=== PATIENT | female | born 1990 | race Caucasian/White ===

== ENCOUNTER 2021-10-16 17:36 | Emergency (ER) | payer OTHER ==
[~2021-10-16] VITALS: Ht 167.6 cm; Wt 77.0 kg
[2021-10-16] MEDS ORDERED: MULTTAB20 PO (17:45)
[2021-10-16 20:41] LABS: BASO % 0.4 % (0.0-1.0); EOS # 0.1 10^3/uL (0.0-0.5); EOS % 1.3 % (0.0-3.0); HEMATOCRIT 39.6 % (36.0-47.0); HEMOGLOBIN 13.7 g/dl (12.0-15.5); LYMPH # 3.1 10^3/uL (1.5-5.0); LYMPH % 30.4 % (24.0-44.0); MEAN CORPUSCULAR HEMOGLOBIN 31.1 pg (27.0-33.0); MEAN CORPUSCULAR HGB CONC 34.6 g/dl (32.0-36.5); MEAN CORPUSCULAR VOLUME 89.8 fl (80.0-96.0); MONO % 9.7 % (2.0-8.0); NEUTROPHILS % 57.8 % (36.0-66.0); PLATELET COUNT, AUTOMATED 225 10^3/uL (150-450); RED BLOOD COUNT 4.41 10^6/uL (4.00-5.40); WHITE BLOOD COUNT 10.3 10^3/uL (4.0-10.0)
[2021-10-16 22:14] VITALS: BP 139/78
== END 2021-10-16 22:18 | disposition home or self-care (01) ==
LOC: M ED 17:36
DX: O20.0 Threatened abortion (principal); O20.8 Other hemorrhage in early pregnancy; Z3A.01 Less than 8 weeks gestation of pregnancy; Z79.899 Other long term (current) drug therapy

== ENCOUNTER 2022-06-10 23:42 | Inpatient (IN) | payer OTHER ==
[~2022-06-10] VITALS: Ht 167.6 cm; Wt 99.5 kg
[~2022-06-10 23:42] MED LIST: MULTTAB20 PO
[2022-06-11] VITALS (48 sets, daily range): BP systolic 104–179; BP diastolic 56–101
[2022-06-11] MEDS ORDERED: CALC500C15 PO (01:50)
[2022-06-11] MEDS ORDERED: HOME MED LIST COMPLETE! XX SCH (01:55)
[2022-06-11] MEDS ORDERED: LACTATED RINGER'S 1000 ML IV STA (02:47)
[2022-06-11] MEDS ORDERED: METHYLERGONOVINE MALEATE 0.2 MG/ML VIAL IM PRN (02:50)
[2022-06-11] MEDS ORDERED: CARBOPROST TROMETHAMINE 250 MCG/ML AMP IM PRN (02:50)
[2022-06-11] MEDS ORDERED: OXYTOCIN DRIP 30 UNITS in IV 1 EA IV PRN ×4 (02:50)
[2022-06-11] MEDS ORDERED: TRANEXAMIC ACID INJection 1,000 MG in NS 100 ML IV PRN (02:50)
[2022-06-11 03:28] LABS: APPEARANCE, URINE MANUAL CLEAR (CLEAR); COLOR, URINE MANUAL YELLOW (YELLOW)
[2022-06-11 03:30] LABS: PROTEIN, URINE MANUAL NEGATIVE (NEGATIVE)
[2022-06-11 03:31] LABS: BILIRUBIN, URINE MANUAL NEGATIVE (NEGATIVE); BLOOD URINE MANUAL POSITIVE (NEGATIVE); GLUCOSE, URINE (UA) MANUAL NEGATIVE (NEGATIVE); KETONE, URINE MANUAL NEGATIVE (NEGATIVE); LEUKOCYTE ESTERASE, URINE MAN TRACE (NEGATIVE); NITRITE, URINE MANUAL NEGATIVE (NEGATIVE); UROBILINOGEN, URINE MANUAL NORMAL (NORMAL)
[2022-06-11 03:34] LABS: BASO # 0.1 10^3/uL (0.0-0.2); BASO % 0.4 % (0.0-1.0); EOS # 0.1 10^3/uL (0.0-0.5); EOS % 0.5 % (0.0-3.0); HEMATOCRIT 41.2 % (36.0-47.0); HEMOGLOBIN 13.8 g/dl (12.0-15.5); LYMPH # 1.6 10^3/uL (1.5-5.0); LYMPH % 10.9 % (24.0-44.0); MEAN CORPUSCULAR HEMOGLOBIN 31.1 pg (27.0-33.0); MEAN CORPUSCULAR HGB CONC 33.5 g/dl (32.0-36.5); MEAN CORPUSCULAR VOLUME 92.8 fl (80.0-96.0); MONO # 1.1 10^3/uL (0.0-0.8); MONO % 7.1 % (2.0-8.0); NEUTROPHILS % 79.7 % (36.0-66.0); PLATELET COUNT, AUTOMATED 227 10^3/uL (150-450); RED BLOOD COUNT 4.44 10^6/uL (4.00-5.40)
[2022-06-11 03:37] LABS: BACTERIA, URINE SMALL AMOUNT; SQUAMOUS EPITHELIAL CELL URINE SMALL AMOUNT /hpf (SMALL AMT)
[2022-06-11 03:38] LABS: HYALINE CAST, URINE NONE SEEN /lpf (0-1)
[2022-06-11] MEDS ORDERED: LR 500 ML IV PRN (04:45)
[2022-06-11] MEDS ORDERED: NALOXONE INJ 0.4MG/1ML VIAL IV PRN (04:45)
[2022-06-11] MEDS ORDERED: diphenhydrAMINE 50MG/ML VIAL IV PRN (04:45)
[2022-06-11] MEDS ORDERED: EPIDURAL/PCA KEYS XX PRN (04:45)
[2022-06-11] MEDS ORDERED: ONDANSETRON 4MG 2ML VIAL IV PRN (04:45)
[2022-06-11] MEDS: LR 1,000 ML IV SCH ×2 (04:57→10:38)
[2022-06-11] MEDS: FENTANYL/ROPIVACAINE/NACL BAG 100 ML EPIDURAL SCH ×2 (05:16→14:45)
[2022-06-11] MEDS: ePHEDrine SULFATE 25 MG/5 ML(5MG/ML) SYRINGE IVP PRN ×3 (08:44→09:38)
[2022-06-11] MEDS: DOCUSATE SODIUM 100MG CAPSULE PO SCH ×2 (09:00→21:45)
[2022-06-11] MEDS ORDERED: MOM 30ML SUSPENSION UDC PO PRN (13:10)
[2022-06-11] MEDS ORDERED: METHYLERGONOVINE MALEATE 0.2 MG TAB PO PRN (13:10)
[2022-06-11] MEDS ORDERED: DIBUCAINE 1% OINTMENT 30GM TOP PRN (13:10)
[2022-06-11] MEDS ORDERED: RHOGAM 300MCG (1500IU) INJ IM SCH (13:10)
[2022-06-11] MEDS ORDERED: OXYTOCIN DRIP 30 UNITS in IV 1 EA IV SCH (13:10)
[2022-06-11] MEDS: IBUPROFEN 800 MG TAB PO SCH ×2 (13:35→21:46)
[2022-06-11] MEDS: ACETAMINOPHEN TAB 650MG DOSE (2X325MG) PO SCH ×3 (14:45→22:45)
[2022-06-11] MEDS ORDERED: CYCLOBENZAPRINE 5MG TABLET PO PRN (16:55)
[2022-06-12] MEDS: ACETAMINOPHEN TAB 650MG DOSE (2X325MG) PO SCH ×3 (02:02→09:46)
[2022-06-12] MEDS: IBUPROFEN 800 MG TAB PO SCH ×3 (05:53→21:09)
[2022-06-12 06:00] VITALS: BP 121/65
[2022-06-12 07:28] LABS: HEMATOCRIT 30.7 % (36.0-47.0); MEAN CORPUSCULAR HEMOGLOBIN 30.8 pg (27.0-33.0); MEAN CORPUSCULAR HGB CONC 32.9 g/dl (32.0-36.5); MEAN CORPUSCULAR VOLUME 93.6 fl (80.0-96.0); PLATELET COUNT, AUTOMATED 174 10^3/uL (150-450); RED BLOOD COUNT 3.28 10^6/uL (4.00-5.40); WHITE BLOOD COUNT 19.2 10^3/uL (4.0-10.0)
[2022-06-12 07:41] LABS: HEMOGLOBIN 10.1 g/dl (12.0-15.5)
[2022-06-12] MEDS: PRENATAL VITAMINS CHEWABLE TABLET PO SCH ×2 (08:41→08:42)
[2022-06-12] MEDS: DOCUSATE SODIUM 100MG CAPSULE PO SCH ×2 (08:42→21:08)
[2022-06-12] MEDS ORDERED: FIORICET TAB PO ONE (09:35)
[2022-06-12] MEDS ORDERED: METOCLOPRAMIDE 5 MG TAB PO ONE (11:00)
[2022-06-12] MEDS ORDERED: FIORICET TAB PO PRN (16:00)
[2022-06-12] MEDS ORDERED: diphenhydrAMINE CREAM 30GM TOP PRN (17:50)
[2022-06-12 17:55] VITALS: BP 118/74
[2022-06-12] MEDS ORDERED: CYCLOBENZAPRINE 5MG TABLET PO ONE (19:00)
[2022-06-12] MEDS: FIORICET TAB PO SCH (21:10)
[2022-06-13] MEDS ORDERED: FIORICET TAB As Ordered ONE (04:51)
[2022-06-13] MEDS: FIORICET TAB PO SCH ×2 (04:53→11:23)
[2022-06-13] MEDS ORDERED: IBUPROFEN 800 MG TAB As Ordered ONE (05:28)
[2022-06-13] MEDS: IBUPROFEN 800 MG TAB PO SCH ×2 (05:31→14:00)
[2022-06-13 05:38] VITALS: BP 122/65
[2022-06-13 10:00] VITALS: BP 112/70
[2022-06-13] MEDS: PRENATAL VITAMINS CHEWABLE TABLET PO SCH (10:23)
[2022-06-13] MEDS: DOCUSATE SODIUM 100MG CAPSULE PO SCH (10:24)
== END 2022-06-13 17:20 | disposition home or self-care (01) | DRG 807 ==
LOC: M LDO 23:42 → M LDI 06-11 02:46 → M OBS 06-11 18:52
PROVIDERS: ADMIT Obstetrics & Gynecology; ATTEND Advanced Practice Midwife
PROC: 10E0XZZ Delivery of Products of Conception, External Approach (ICD-10-PCS; principal; 2022-06-11)
PROC: 0KQM0ZZ Repair Perineum Muscle, Open Approach (ICD-10-PCS; 2022-06-11)
PROC: 0HQ9XZZ Repair Perineum Skin, External Approach (ICD-10-PCS; 2022-06-11)
PROC: 3E0R3GC Introduction of Other Therapeutic Substance into Spinal Canal, Percutaneous Approach (ICD-10-PCS; 2022-06-13)
DX: O70.1 Second degree perineal laceration during delivery (principal); Z37.0 Single live birth; Z3A.40 40 weeks gestation of pregnancy; O70.0 First degree perineal laceration during delivery; O89.4 Spinal and epidural anesthesia-induced headache during the puerperium